=== PATIENT | female | born 1995 | race Caucasian/White ===

== ENCOUNTER → 2016-06-05 | Outpatient (CLI) | payer BC, OTHER ==
[2016-06-05 11:40] LABS: HEMOGLOBIN 13.4 gm/dl (12.3-15.3); RED BLOOD COUNT 4.9 M/UL (4.00-5.10)
[2016-06-05 12:08] LABS: BUN/CREATININE RATIO 23 (0-10)
== END ==
LOC: LAB 11:08
PROVIDERS: Family Medicine
DX: R53.83 Other fatigue (principal); E03.9 Hypothyroidism, unspecified; E55.9 Vitamin D deficiency, unspecified
CPT/HCPCS: 36415; 80053; 82652; 84439; 84443; 85027

== ENCOUNTER → 2016-06-15 | Outpatient (CLI) | payer BC, OTHER | LOC: CT 14:10 | DX: R59.0 Localized enlarged lymph nodes (principal) | CPT/HCPCS: 71260; 84703; J7050; Q9962 ==

== ENCOUNTER → 2016-06-29 | Outpatient (CLI) | payer BC, OTHER | LOC: HEART 5 15:16 | DX: R91.1 Solitary pulmonary nodule (principal); R53.83 Other fatigue; D86.1 Sarcoidosis of lymph nodes | CPT/HCPCS: 94060 ==

== ENCOUNTER 2016-07-16 05:43 | Emergency (ER) | payer BC, OTHER ==
[2016-07-16 06:58] LABS: HEMOGLOBIN 13.9 gm/dl (12.3-15.3); RED BLOOD COUNT 4.96 M/UL (4.00-5.10); WHITE BLOOD COUNT 17.5 K/UL (4.5-11.0)
[2016-07-16 07:31] LABS: BUN/CREATININE RATIO 14 (0-10)
== END 2016-07-16 09:00 | disposition home or self-care (01) ==
LOC: ER1 05:43
PROVIDERS: Family Medicine
DX: R10.13 Epigastric pain (principal); R11.2 Nausea with vomiting, unspecified; R19.7 Diarrhea, unspecified; D72.829 Elevated white blood cell count, unspecified; Z90.49 Acquired absence of other specified parts of digestive tract
CPT/HCPCS: 36415; 80053; 81001; 82150; 83690; 84703; 85025; 96374; 96375; 99284; J2405; J2550; J7030; J7050

== ENCOUNTER → 2016-08-31 | Outpatient (CLI) | payer BC, OTHER | LOC: LAB 12:31 | DX: N92.6 Irregular menstruation, unspecified (principal) | CPT/HCPCS: 36415; 84144 ==